=== PATIENT | male | born 1980 | race African-American/Black ===

== ENCOUNTER 2018-01-26 12:34 | Emergency (ER) | payer OTHER ==
[2018-01-26 12:49] VITALS: BP 146/91; PULSE 83; TEMP 99; BMI 29.3
--- NOTE | 2018-01-26 13:39 | PDOC ---
History of Present Illness - General Chief Complaint: Cold Symptoms Stated Complaint: FEVER, CONGESTION Time Seen by Provider: 01/26/18 13:01 History Source: Patient - History of Present Illness Timing/Duration: reports: other Associated Symptoms: reports: cough, fever/chills, nasal congestion. denies: earache, headache, shortness of breath, sore throat Past History - Past Medical History Allergies/Adverse Reactions: Allergies Allergy/AdvReac Type Severity Reaction Status Date / Time No Known Allergies Allergy Verified 01/26/18 12:49 Home Medications: Ambulatory Orders NK [No Known Home Medication] 01/26/18 COPD: No - Immunization History Immunization Up to Date: Yes - Suicide/Smoking/Psychosocial Hx Smoking Status: No Smoking History: Never smoked Have you smoked in the past 12 months: No Number of Cigarettes Smoked Daily: 0 Information on smoking cessation initiated: No Hx Alcohol Use: No Drug/Substance Use Hx: No Substance Use Type: None Review of Systems - Review of Systems Constitutional: Yes: Fever HEENTM: No: Ear Pain, Throat Pain Respiratory: Yes: Cough. No: Shortness of Breath, Wheezing *Physical Exam - Vital Signs Last Vital Signs Temp Pulse Resp BP Pulse Ox 99.0 F 83 16 146/91 100 01/26/18 12:47 01/26/18 12:47 01/26/18 12:47 01/26/18 12:47 01/26/18 12:47 - Physical Exam General Appearance: Yes: Appropriately Dressed. No: Apparent Distress HEENT: positive: Normal ENT Inspection, Normal Voice. negative: Scleral Icterus (R), Scleral Icterus (L) Neck: positive: Supple. negative: Lymphadenopathy (R), Lymphadenopathy (L) Respiratory/Chest: positive: Lungs Clear, Normal Breath Sounds. negative: Respiratory Distress Cardiovascular: positive: Regular Rate, S1, S2 Integumentary: positive: Dry, Warm Neurologic: positive: Fully Oriented, Alert, Normal Mood/Affect Medical Decision Making - Medical Decision Making 01/26/18 13:37 37-year-old male, no significant history here with productive cough with nasal congestion and low-grade fever x several days. No shortness of breath, chest pain, headache, body aches, nausea, vomiting or diarrhea. No known sick contacts. Not taking anything for symptoms. Patient well-appearing and stable with unremarkable exam. Most likely viral. DC with supportive treatment *DC/Admit/Observation/Transfer Diagnosis at time of Disposition: Upper respiratory infection, viral - Discharge Dispostion Disposition: HOME Condition at time of disposition: Good - Referrals Referrals: Kaela Wagner MD [Primary Care Provider] - - Patient Instructions Printed Discharge Instructions: DI for Viral Upper Respiratory Infection -- Adult - Post Discharge Activity
== END 2018-01-26 13:38 | disposition home or self-care (01) ==
LOC: JERFT 12:34
DX: J06.9 Acute upper respiratory infection, unspecified (principal)
CPT/HCPCS: 99281-25

== ENCOUNTER 2019-06-01 12:05 | Emergency (ER) | payer OTHER ==
[2019-06-01 12:59] VITALS: BP 142/85; PULSE 93; TEMP 98.2; BMI 29.3
[2019-06-01] MEDS ORDERED: KETOROLAC TROMETHAMINE 60 MG/2 ML VIAL IM ONE (13:01)
--- NOTE | 2019-06-01 13:01 | PDOC ---
Rapid Medical Evaluation Chief Complaint: Chest Pain Time Seen by Provider: 06/01/19 12:54 Medical Evaluation: Allergies Allergy/AdvReac Type Severity Reaction Status Date / Time No Known Allergies Allergy Verified 06/01/19 12:54 06/01/19 12:58 Pt c/o: rt chest and upper back pain since yesterday after lifting heavy item, took motrin with good effect Pt on brief exam: reproducible upper mid chest pain at 4th-5th ics lateral of MCL and upper rt trapezius Pt ordered for: toradol IM Pt to proceed to the ED Discharge Disposition - Diagnosis Right-sided chest pain - Referrals - Patient Instructions - Post Discharge Activity
[2019-06-01] MEDS ORDERED: KETOROLAC TROMETHAMINE 60 MG/2 ML VIAL ONE (13:13)
--- NOTE | 2019-06-01 13:39 | PDOC ---
History of Present Illness - General Chief Complaint: Chest Pain Stated Complaint: CHEST/MUSCLE PAIN Time Seen by Provider: 06/01/19 12:54 History Source: Patient Exam Limitations: No Limitations - History of Present Illness Initial Comments: 06/01/19 13:39 Patient here with complaints of acute onset of right chest wall pain last night. 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 No shortness of breath, no palpitations, no fevers or cough recently. is more painful to take a deep breath and move his right arm. Took ibuprofen with minimal results Occurred: reports: yesterday Severity: reports: mild, moderate Pain Location: reports: chest Method of Injury: Yes: other (heavy lifting) Modifying Factors: improves with: None Associated Symptoms (Fall): denies symptoms Past History - Travel Traveled outside of the country in the last 30 days: No Close contact w/someone who was outside of country & ill: No - Past Medical History Allergies/Adverse Reactions: Allergies Allergy/AdvReac Type Severity Reaction Status Date / Time No Known Allergies Allergy Verified 06/01/19 12:54 Home Medications: Ambulatory Orders Naproxen [Naprosyn -] 500 mg PO BID #30 tablet 06/01/19 COPD: No - Immunization History Immunization Up to Date: Yes - Suicide/Smoking/Psychosocial Hx Smoking Status: No Smoking History: Never smoked Have you smoked in the past 12 months: No Number of Cigarettes Smoked Daily: 0 Information on smoking cessation initiated: No Hx Alcohol Use: No Drug/Substance Use Hx: No Substance Use Type: None Trauma Specific PMHX - Complaint Specific PMHX Arthritis: No Back Injury: No Neck Injury: No Hx Sacro Iliac Joint Dysfunction: No Review of Systems - Review of Systems Able to Perform ROS?: Yes Is the patient limited [place] proficient: Yes Constitutional: Yes: Symptoms Reported, See HPI, Malaise HEENTM: Yes: See HPI. No: Symptoms Reported Respiratory: Yes: See HPI. No: Symptoms reported, Cough Musculoskeletal: Yes: Symptoms Reported, Muscle Pain. No: Joint Swelling All Other Systems: Reviewed and Negative *Physical Exam - Vital Signs Last Vital Signs Temp Pulse Resp BP Pulse Ox 98.2 F 93 H 17 142/85 96 06/01/19 12:55 06/01/19 12:55 06/01/19 12:55 06/01/19 12:55 06/01/19 12:55 - Physical Exam General Appearance: Yes: Nourished, Appropriately Dressed HEENT: positive: EARLINE, Normal ENT Inspection, TMs Normal, Pharynx Normal Neck: positive: Supple. negative: Lymphadenopathy (R), Lymphadenopathy (L) Respiratory/Chest: positive: Lungs Clear Gastrointestinal/Abdominal: positive: Soft Musculoskeletal: positive: Normal Inspection. negative: Muscle Spasm (is reproduced along right pectoralis musculature will worsen with flexion and abduction of right arm, and against resistance pushing. Has no bony tenderness, no spinal tenderness, no left-sided pain. 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 *DC/Admit/Observation/Transfer Diagnosis at time of Disposition: Muscle strain of chest wall Qualifiers: Encounter type: initial encounter Qualified Code(s): S29.011A - Strain of muscle and tendon of front wall of thorax, initial encounter - Discharge Dispostion Disposition: HOME Condition at time of disposition: Stable Decision to Admit order: No - Referrals Referrals: Kaela Wagner MD [Primary Care Provider] - - Patient Instructions Printed Discharge Instructions: DI for Muscle Strain Additional Instructions: Rest, ice to area on and off for 15 minutes 4-6 times a day Avoid heavy lifting or exercise until pain and swelling is resolved or until further directed Keep area highly elevated to reduce swelling Use splints/Keenan wrap as directed Followup with orthopedist in one to 2 days if not improving, if significantly improved may wait one week for followup with orthopedist May use percent 1500 milligram tablet every 12 hours as needed for pain - Post Discharge Activity Forms/Work/School Notes: Back to Work
== END 2019-06-01 13:36 | disposition home or self-care (01) ==
LOC: JERFT 12:05
PROC: 3E0233Z Introduction of Anti-inflammatory into Muscle, Percutaneous Approach (ICD-10-PCS; principal; 2019-06-01)
DX: S29.011A Strain of muscle and tendon of front wall of thorax, initial encounter (principal); X50.0XXA Overexertion from strenuous movement or load, initial encounter; Y93.89 Activity, other specified; Y92.89 Other specified places as the place of occurrence of the external cause; Y99.0 Civilian activity done for income or pay
CPT/HCPCS: 99281-25

== ENCOUNTER 2019-07-01 13:58 | Emergency (ER) | payer OTHER ==
[2019-07-01 14:04] VITALS: BP 130/75; PULSE 84; TEMP 98.5; BMI 29.3
[2019-07-01] MEDS ORDERED: IBUPROFEN 600 MG TABLET (FP) PO ONE ×2 (14:21→14:50)
--- NOTE | 2019-07-01 14:38 | PDOC ---
History of Present Illness - General Chief Complaint: Pain, Acute Stated Complaint: R LEG PAIN History Source: Patient Exam Limitations: No Limitations - History of Present Illness Initial Comments: 07/01/19 14:25 Patient is a 38 year old male with no pmhx c/o right ankle and Achilles pain and see yesterday. He jumped down from a 4 foot height to the ground, states he heard a pop and then had sudden onset of pain now 7/10, worse with planter flexion movement. PMHX: as above PSOCHX: occ etoh, neg drug, cig ALL: NKDA GENERAL/CONSTITUTIONAL: No fever or chills. No weakness. No weight change. HEAD, EYES, EARS, NOSE AND THROAT: No change in vision. No ear pain or discharge. No sore throat. CARDIOVASCULAR: No chest pain or shortness of breath. RESPIRATORY: No cough, wheezing, or hemoptysis. MUSCULOSKELETAL: No joint (+) muscle swelling or pain. No neck or back pain. SKIN AND BREASTS: No rash or easy bruising. GENERAL: The patient is awake, alert, and fully oriented, in no acute distress. HEAD: Normal with no signs of trauma. EXTREMITIES: right ankle - pain to the Achilles tendon on plantar flexion, tenderness over the medial or loss and Achilles tendon, decreased range of motion range of motion, no edema. No clubbing or cyanosis. No cords, erythema. NEUROLOGICAL: Cranial nerves II through XII grossly intact. Normal speech, normal gait. PSYCH: Normal mood, normal affect. SKIN: Warm, Dry, normal turgor, no rashes or lesions noted. Past History - Past Medical History Allergies/Adverse Reactions: Allergies Allergy/AdvReac Type Severity Reaction Status Date / Time No Known Allergies Allergy Verified 07/01/19 14:04 Home Medications: Ambulatory Orders Naproxen [Naprosyn -] 500 mg PO BID #30 tablet 06/01/19 COPD: No - Immunization History Immunization Up to Date: Yes - Suicide/Smoking/Psychosocial Hx Smoking Status: No Smoking History: Never smoked Have you smoked in the past 12 months: No Number of Cigarettes Smoked Daily: 0 Hx Alcohol Use: Yes Drug/Substance Use Hx: No Substance Use Type: None *Physical Exam - Vital Signs Last Vital Signs Temp Pulse Resp BP Pulse Ox 98.5 F 84 16 130/75 96 07/01/19 14:02 07/01/19 14:02 07/01/19 14:02 07/01/19 14:02 07/01/19 14:02 ED Treatment Course - RADIOLOGY Radiology Studies Ordered: Category Date Time Status ANKLE & FOOT-RIGHT* [RAD] Stat Radiology 07/01/19 14:19 Ordered Medical Decision Making - Medical Decision Making 07/01/19 14:25 Patient is a 38 year old male with no pmhx c/o right ankle and Achilles pain and see yesterday. He jumped down from a 4 foot height to the ground, states he heard a pop and then had sudden onset of pain now 7/10, worse with planter flexion movement. Symptoms consistent with Achilles tendon injury, possible partial tear. Motrin 600 mg by mouth, x-ray right ankle and foot. Posterior splint applied to the right foot. Crutch walking demonstrated returned demonstration. I discussed the physical exam findings, ancillary test results and final diagnoses with the patient. I answered all of the patient's questions. The patient was satisfied with the care received and felt comfortable with the discharge plan and treatment plan. The Patient agrees to follow up with the primary care physician within 24-72 hours. *DC/Admit/Observation/Transfer Diagnosis at time of Disposition: Achilles tendon injury Qualifiers: Encounter type: initial encounter Laterality: right Qualified Code(s): S86.001A - Unspecified injury of right Achilles tendon, initial encounter - Discharge Dispostion Disposition: HOME Condition at time of disposition: Stable - Referrals Referrals: Kaela Wagner MD [Primary Care Provider] - Kaleb Vasquez MD [Staff Physician] - - Patient Instructions Additional Instructions: Your Discharge Instructions: You must call primary care physician within 24 hours to arrange follow-up. Return to the Emergency Department with any new, persistent or worsening symptoms, for fever, chills, SOB, dizziness or any other concerning changes that may occur. You must follow-up with orthopedist within the next 2-3 days. Wear the splint and crutches until seen by orthopedics. - Post Discharge Activity Forms/Work/School Notes: Back to Work
== END 2019-07-01 15:38 | disposition home or self-care (01) ==
LOC: JERFT 13:58
PROC: 2W3QX1Z Immobilization of Right Lower Leg using Splint (ICD-10-PCS; principal; 2019-07-01)
DX: S86.001A Unspecified injury of right Achilles tendon, initial encounter (principal); W17.89XA Other fall from one level to another, initial encounter; Y93.89 Activity, other specified; Y92.89 Other specified places as the place of occurrence of the external cause; Y99.8 Other external cause status
CPT/HCPCS: 29515; 73610-TC-RT-FY; 73630-TC-RT-FY; 99281-25

== ENCOUNTER 2019-09-12 14:34 | Emergency (ER) | payer SELFPAY ==
[2019-09-12 14:40] VITALS: BP 143/91; PULSE 74; TEMP 98.2; BMI 29.3
--- NOTE | 2019-09-12 15:09 | PDOC ---
History of Present Illness - General Chief Complaint: Migraine Headache Stated Complaint: HEADACHE/DIZZINESS Time Seen by Provider: 09/12/19 15:08 History Source: Patient Exam Limitations: No Limitations - History of Present Illness Initial Comments: 09/12/19 15:30 Sony Lynn is a 39yM w no significant PMHx presenting with intermittent L sided headaches. Sudden onset 1 week ago, intermittent episodes lasting few hours, associated photophobia. Took aleve yesterday for relief. Drinks 1 ice coffee w donut for breakfast every morning, lots of juice, not much water, few shots of Jennie on weekend. Denies head trauma, vision changes, fever, nausea /vomiting. Past History - Past Medical History Allergies/Adverse Reactions: Allergies Allergy/AdvReac Type Severity Reaction Status Date / Time No Known Allergies Allergy Verified 09/12/19 14:37 Home Medications: Ambulatory Orders NK [No Known Home Medication] 09/12/19 COPD: No - Immunization History Immunization Up to Date: Yes - Psycho Social/Smoking Cessation Hx Smoking Status: No Smoking History: Smoker current status UNK Have you smoked in the past 12 months: No Number of Cigarettes Smoked Daily: 0 Hx Alcohol Use: Yes Drug/Substance Use Hx: No Substance Use Type: None Review of Systems - Review of Systems Constitutional: No: Chills, Fever HEENTM: No: Eye Pain, Recent change in vision, Nose Pain, Throat Pain, Mouth Pain Respiratory: No: Cough, Shortness of Breath, Wheezing Cardiac (ROS): No: Chest Pain, Edema, Lightheadedness, Palpitations ABD/GI: No: Abdominal Distended, Constipated, Diarrhea, Nausea, Vomiting : No: Burning, Dysuria, Discharge, Frequency, Flank Pain, Hematuria Musculoskeletal: No: Back Pain, Joint Pain Integumentary: No: Bruising, Dryness, Erythema, Rash Neurological: Yes: Headache. No: Seizure, Tingling, Tremors Psychiatric: No: Anxiety, Depression, Stressors Endocrine: No: Excessive Sweating, Flushing, Intolerance to Cold, Intolerance to Heat Hematologic/Lymphatic: No: Anemia, Blood Clots *Physical Exam - Vital Signs Last Vital Signs Temp Pulse Resp BP Pulse Ox 98.2 F 74 16 143/91 100 09/12/19 14:39 09/12/19 14:39 09/12/19 14:39 09/12/19 14:39 09/12/19 14:39 - Physical Exam General Appearance: Yes: Nourished, Appropriately Dressed. No: Apparent Distress HEENT: positive: EOMI, EARLINE, Normal Voice, Hearing Grossly Normal. negative: Scleral Icterus (R), Scleral Icterus (L), Nasal Congestion, Rhinorrhea Respiratory/Chest: positive: Lungs Clear, Normal Breath Sounds. negative: Chest Tender, Respiratory Distress, Crackles, Rales, Rhonchi, Stridor, Wheezing Cardiovascular: positive: Regular Rhythm, Regular Rate, S1, S2. 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 negative: Numbness, Sensory Deficit, Confused Medical Decision Making - Medical Decision Making 09/12/19 15:38 Sony Lynn is a 39yM w no significant PMHx presenting with 1 week intermittent L sided headaches d/t dehydration. Cranial nerve exam normal. Asymptomatic in ED. Head CT did not show acute bleed/infarct/fracture. DC home w PCP f/u, instructions to drink lots of water and limit caffeine/alcohol intake. Discharge - Discharge Information Problems reviewed: Yes Clinical Impression/Diagnosis: Migraine headache Qualifiers: Migraine type: without aura Status migrainosus presence: without status migrainosus Intractability: not intractable Qualified Code(s): G43.009 - Migraine without aura, not intractable, without status migrainosus Condition: Good Disposition: HOME - Admission No - Follow up/Referral Referrals: Kaela Wagner MD [Primary Care Provider] - - Patient Discharge Instructions Patient Printed Discharge Instructions: DI for Headache Additional Instructions: You were seen for headache. Your neurologic exam and head CT did not show anything serious. Your headaches are likely due to not drinking enough water. Please follow up with your primary care doctor regarding your headache. Drink lots of water. Limit your caffeine and alcohol intake. You can take tylenol or ibuprofen if you continue to have headaches. Come back to the ED if you have worsening headache not relieved with medication , vision changes, fevers, or vomiting. - Post Discharge Activity
--- NOTE | 2019-09-12 16:31 | PDOC ---
Attending Attestation - Resident Resident Name: HannahJaleel - ED Attending Attestation I have performed the following: I have examined & evaluated the patient, The case was reviewed & discussed with the resident, I agree w/resident's findings & plan - HPI HPI: 09/12/19 16:29 Healthy 39-year-old male with no significant past medical history presents with headache for the past week. Patient reports no history of recurring headaches, about 3 weeks ago had 1 day of mild gradual onset headache that resolved spontaneously, now presents with 1 week of ongoing left-sided headache. No associated photophobia/phonophobia/nuchal rigidity/fever/chills/speech deficits/ motor deficit/nausea/vomiting. Denies any injury, denies any recent infectious process, presents for evaluation. - Physicial Exam PE: 09/12/19 16:30 Vital signs normal, afebrile Well-appearing standing by stretcher, no acute distress and smiling NEURO: Mental status: The patient is alert and oriented x3. Cranial nerves: Cranial nerves II through XII are intact Motor: The upper extremities are 5 over 5 in all muscle groups. The lower extremities are 5 over 5 in all muscle groups. No pronator drift. Sensation: Sensation is intact to light touch throughout. Cerebellar: Uwneaw-fwebmc-bodm is normal in both upper extremities. Heel-knee- nash is normal in both lower extremities. Reflexes: 2+ and symmetric in the upper and lower extremities. Gait: Normal. Heel and toe walking are normal. Tandem gait is normal. - Medical Decision Making 09/12/19 16:30 39-year-old male with new onset atraumatic headache for the past week, no red flags on history or physical exam. CT head performed given new onset headache, no acute pathology Declined any medications for pain, symptoms improved in the ED Neurology referral as needed, understands return criteria
== END 2019-09-12 16:22 | disposition home or self-care (01) ==
LOC: JER 14:34
DX: G43.009 Migraine without aura, not intractable, without status migrainosus (principal)
CPT/HCPCS: 70450-TC; 99281-25

== ENCOUNTER 2021-05-15 18:48 | Emergency (ER) | payer OTHER ==
[2021-05-15 19:02] VITALS: BP 158/100; PULSE 60; TEMP 98.1; BMI 29.9
[2021-05-15] MEDS ORDERED: DIPHTH,PERTUSS(ACELL),TET 0.5 ML DISP.SYRIN IM ONE ×2 (19:27→20:36)
== END 2021-05-15 20:42 | disposition home or self-care (01) ==
LOC: JER 18:48 → JERFT 18:48
PROC: 0HQFXZZ Repair Right Hand Skin, External Approach (ICD-10-PCS; principal; 2021-05-15)
PROC: 3E0234Z Introduction of Serum, Toxoid and Vaccine into Muscle, Percutaneous Approach (ICD-10-PCS; 2021-05-15)
DX: S61.212A Laceration without foreign body of right middle finger without damage to nail, initial encounter (principal); W26.8XXA Contact with other sharp object(s), not elsewhere classified, initial encounter
CPT/HCPCS: 12001-25; 73140-TC-RT-FY; 90471; 90715; 99284-25

== ENCOUNTER 2021-09-10 05:33 | Emergency (ER) | payer OTHER ==
[2021-09-10 05:57] VITALS: BP 147/94; PULSE 85; TEMP 98.1; BMI 29.9
[2021-09-10] MEDS ORDERED: FLUORESCEIN NA 1 EA STRIP OD ONE (05:59)
[2021-09-10] MEDS ORDERED: TETRACAINE 0.5% HCL 0.6ML DROPPER.BOTTLE OD ONE (06:00)
[2021-09-10] MEDS ORDERED: TETRACAINE 0.5% OPHTH SOLN 2 ML BOTTLE ONE (06:02)
[2021-09-10] MEDS ORDERED: FLUORESCEIN NA 1 EA STRIP ONE (06:03)
[2021-09-10] MEDS ORDERED: ERYTHROMYCIN 0.5% OPHTHALMIC OINTMENT 3.5 GM TUBE OD ONE (06:14)
[2021-09-10] MEDS ORDERED: ERYTHROMYCIN 0.5% OPHTHALMIC OINTMENT 3.5 GM TUBE ONE ×3 (06:15→06:18)
== END 2021-09-10 06:22 | disposition home or self-care (01) ==
LOC: JER 05:33
DX: H10.31 Unspecified acute conjunctivitis, right eye (principal)
CPT/HCPCS: 99283-25

== ENCOUNTER 2024-03-01 11:21 | Emergency (ER) | payer SELFPAY ==
[2024-03-01 11:33] VITALS: BP 137/86; PULSE 74; RESP 18; TEMP 98; BMI 29.5
== END 2024-03-01 12:58 | disposition home or self-care (01) ==
LOC: JERFT 11:21
DX: R00.2 Palpitations (principal)
CPT/HCPCS: 99283-25